=== PATIENT | female | born 1955 ===

== ENCOUNTER 2019-10-30 16:42 | Emergency (ER) | payer OTHER ==
[2019-10-30] MEDS ORDERED: OXYCODONE-ACETAMINOPHEN 5-325 MG TABLET PO ONE (17:18)
--- NOTE | 2019-10-30 17:22 | RADIOLOGY REPORT (SQ) ---
EXAM DESCRIPTION: CT HEAD WITHOUT IMAGES COMPLETED DATE/TIME: 10/30/2019 5:12 pm REASON FOR STUDY: fall/hit head, pt on blood thinners COMPARISON: None. TECHNIQUE: Axial images acquired through the brain without intravenous contrast. Images reviewed wi th bone, brain and subdural windows. Additional sagittal and coronal reconstructions were generated. Images stored on PACS. All CT scanners at this facility use dose modulation, iterative reconstruction, and/or weight based d osing when appropriate to reduce radiation dose to as low as reasonably achievable (ALARA). [facility]: Dose Right [facility]: CareDose [facility]: Dose Right [facility]: Teradose 4D [facility]: [employer] RADIATION DOSE: CT Rad equipment meets quality standard of care and radiation dose reduction techniq ues were employed. CTDIvol: 53.2 mGy. DLP: 911 mGy-cm. mGy. LIMITATIONS: None. FINDINGS: VENTRICLES: Normal size and contour. CEREBRUM: No masses. No hemorrhage. No midline shift. No evidence for acute infarction. Normal gra y/white matter differentiation. No areas of low density in the white matter. CEREBELLUM: No masses. No hemorrhage. No alteration of density. No evidence for acute infarction. EXTRAAXIAL SPACES: No fluid collections. No masses. ORBITS AND GLOBE: No intra- or extraconal masses. Normal contour of globe without masses. CALVARIUM: No fracture. PARANASAL SINUSES: No fluid or mucosal thickening. SOFT TISSUES: Soft tissue swelling over the left orbit. OTHER: No other significant finding. IMPRESSION: NORMAL BRAIN CT WITHOUT CONTRAST. SOFT TISSUE SWELLING OVER THE LEFT ORBIT. NO FRACTURE. EVIDENCE OF ACUTE STROKE: NO. COMMENT: Quality ID # [id number]: Final reports with documentation of one or more dose reduction techniques (e.g., Automated exposure control, adjustment of the mA and/or kV according to patient size, use of iterative reconstruction technique) TECHNICAL DOCUMENTATION: JOB ID: [id number] 2010 [employer]- All Rights Reserved Reading location - IP/workstation name: [email or web address]
--- NOTE | 2019-10-30 17:25 | RADIOLOGY REPORT (SQ) ---
EXAM DESCRIPTION: FOOT LEFT COMPLETE IMAGES COMPLETED DATE/TIME: 10/30/2019 5:12 pm REASON FOR STUDY: fall/trauma to left foot COMPARISON: None. NUMBER OF VIEWS: Three views. TECHNIQUE: AP, lateral and oblique radiographic images acquired of the left foot. LIMITATIONS: None. FINDINGS: MINERALIZATION: Normal. BONES: Displaced fracture at the base of the distal phalanx of the 1st toe. No worrisome bone lesion s. JOINTS: No effusions. SOFT TISSUES: No soft tissue swelling. No foreign body. OTHER: No other significant finding. IMPRESSION: DISPLACED FRACTURE OF THE BASE OF THE DISTAL PHALANX OF THE 1ST TOE. PRESUMABLY THIS IS AN ACUTE FRACTURE. NO OTHER SIGNIFICANT FINDINGS. TECHNICAL DOCUMENTATION: JOB ID: [id number] 2010 [email or web address]- All Rights Reserved Reading location - IP/workstation name: [email or web address]
[2019-10-30] MEDS ORDERED: LIDOCAINE 1% INJ-PF (10 MG/ML) 30 ML SDV INFIL ONE (17:27)
[2019-10-30] MEDS ORDERED: CEFAZOLIN 2 GM/D5W RTU 2 GM/50 ML RTUPB IV ONE (17:59)
[2019-10-30] MEDS ORDERED: DIPH/PERTUSS(ACELL)/TETANUS VAC/PF 0.5 ML SYR (>=10YO) IM ONE (18:01)
--- NOTE | 2019-10-30 18:23 | ER Document Report ---
HPI - HPI Time Seen by Provider: 10/30/19 17:02 Pain Level: 1 Notes: 64-year-old female patient presents emergency department chief complaint of fall injury. Patient reports she was walking when she tripped over some concrete on a pathway and fell striking her left great toe, right knee and left forehead. She denies any loss of consciousness, denies any vomiting. She is unsure when her last tetanus was. - DERM Skin Color: [place] Past Medical History - General Information source: Patient - Social History Smoking Status: Never Smoker Family History: Reviewed & Not Pertinent Patient has suicidal ideation: No Patient has homicidal ideation: No - Past Medical History Cardiac Medical History: Reports: Hx Hypercholesterolemia, Hx Hypertension Endocrine Medical History: Reports: Hx Diabetes Mellitus Type 2 Vertical Provider Document - CONSTITUTIONAL Notes: PHYSICAL EXAMINATION: GENERAL: Well-appearing, well-nourished and in no acute distress. HEAD: Hematoma superior to left eye. EYES: Pupils equal round and reactive to light, extraocular movements intact, conjunctiva are normal. ENT: Nares patent, oropharynx clear without exudates. Moist mucous membranes. NECK: Normal range of motion, supple without lymphadenopathy LUNGS: Breath sounds clear to auscultation bilaterally and equal. No wheezes rales or rhonchi. HEART: Regular rate and rhythm without murmurs ABDOMEN: Soft, nontender, nondistended abdomen. No guarding, no rebound. No masses appreciated. Female : deferred Musculoskeletal: Normal range of motion, no pitting or edema. No cyanosis. NEUROLOGICAL: Cranial nerves grossly intact. Normal speech. Normal sensory, motor exams PSYCH: Normal mood, normal affect. SKIN: 2 cm laceration noted to dorsal surface of left great toe measuring approximately 2 cm, this is gaping open, there is bone exposed. Cap refill less than 3 seconds, normal motor and sensation at site of injury. Abrasion to right knee. Course - Re-evaluation Re-evalutation: 10/30/19 18:[address] Hay through the biazzi nitrator operator. Awaiting callback. 10/30/19 18:30 Spoke with on-call orthopedist, Dr. Hay. He will see patient in the office. Patient will be advised to call his office in the morning. Patient verbalizes understanding and agreement with treatment plan. Prescription sent for Pat[place] and Augmentin. - Vital Signs Vital signs: Temp Pulse Resp BP Pulse Ox 99 F 114 H 16 114/70 96 10/30/19 17:01 10/30/19 16:49 10/30/19 16:49 10/30/19 16:49 10/30/19 16:49 Procedures - Immobilization Left great toe Pre-Proc Neuro Vasc Exam: Normal Immobilizer type: Crutches, Other Performed by: PCT Post-Proc Neuro Vasc Exam: Normal - Laceration/Wound Repair Left great toe Wound length (cm): 2 Wound's Depth, Shape: Irregular Laceration pre-procedure: Sterile PPE donned Anesthetic type: 1% Lidocaine Wound explored: Clean Irrigated w/ Saline (mLs): 100 Wound Repaired With: Sutures Suture Size/Type: 5:0 Number of Sutures: 2 Discharge - Discharge Clinical Impression: Open fracture of distal phalanx of left great toe Qualifiers: Encounter type: initial encounter Fracture alignment: displaced Qualified Code(s): S92.422B - Displaced fracture of distal phalanx of left great toe, initial encounter for open fracture Head injury Qualifiers: Encounter type: initial encounter Qualified Code(s): S09.90XA - Unspecified injury of head, initial encounter Fall Qualifiers: Encounter type: initial encounter Qualified Code(s): W19.XXXA - Unspecified fall, initial encounter Condition: Stable Disposition: HOME, SELF-CARE Additional Instructions: Your head CT was normal, no evidence of fracture or bleed. You may end up having a black eye and the bruising may end up coming down into your face with gravity. Do not let this alarm you. You have an open fracture of your toe. We did a preliminary closure on this pending your follow-up with orthopedic surgery. Keep the dressing in place that we have applied. Take ibuprofen 600 mg every 6 hours for pain and inflammation. Use the narcotic pain medication as prescribed for severe pain only. Call Dr. Hay's office tomorrow morning, let them know you were seen in the emergency department and Dr. Hay stated that he will see you for follow-up. Prescriptions: Amoxicillin/Potassium Clav [Augmentin 875-125 Tablet] 1 tab PO BID #20 tab Hydrocodone/Acetaminophen [Patillas 5-325 mg Tablet] 1 tab PO Q6H PRN #12 tablet PRN Reason: Referrals: MARCOS HAY MD [ACTIVE PROVISIONAL STAFF] - Follow up as needed
[2019-10-30] MEDS ORDERED: CEFAZOLIN INJ 1 GM VIAL IV ONE (18:24)
[2019-10-30 19:31] VITALS: BP 109/65
[2019-10-30] MEDS ORDERED: HYDROCODONE/ACETAMINOPHEN 5-325 MG (6 TAB/ER DISP) PO PRN (19:36)
== END 2019-10-30 19:44 | disposition home or self-care (01) ==
LOC: ER 16:42
DX: S09.90XA Unspecified injury of head, initial encounter (principal); S92.422B Displaced fracture of distal phalanx of left great toe, initial encounter for open fracture; W19.XXXA Unspecified fall, initial encounter; E78.00 Pure hypercholesterolemia, unspecified; I10 Essential (primary) hypertension; E11.9 Type 2 diabetes mellitus without complications
CPT/HCPCS: 99283; 90471; 96365; 73630; 70450; 90715; 12001; J0690; J3490; A9270 ×2